=== PATIENT | female | born 1985 | race Hispanic/Latino ===

== ENCOUNTER 2017-05-01 18:53 | Emergency (ER) | payer OTHER ==
--- NOTE | 2017-05-01 19:11 | ED PDOC ---
Arrival/HPI - General Time Seen by Provider: 05/01/17 19:00 Historian: Patient - History of Present Illness Narrative History of Present Illness (Text): 05/01/17 19:04 31 y/o female, no significant pmh, nkda, last tetanus doesn't remember, c/o rt. hand thumb skin avulsion s/p sliced by the a slicer while cutting zucchini. Aching pain, no numbness or tingling, no difficulty moving the injured thumb, no numbness or tingling, no other medical or psychological complaints. Past Medical History - Provider Review Nursing Documentation Reviewed: Yes Family/Social History - Physician Review Nursing Documentation Reviewed: Yes Family/Social History: Unknown Family HX Allergies/Home Meds Allergies/Adverse Reactions: Allergies No Known Allergies Allergy (Verified 05/01/17 19:06) Home Medications: Home Meds Medication Instructions Recorded Confirmed No Known Home Med 05/01/17 05/01/17 Review of Systems - Review of Systems Constitutional: absent: Fatigue, Fevers Eyes: absent: Vision Changes ENT: absent: Hearing Changes Respiratory: absent: SOB, Cough Cardiovascular: absent: Chest Pain Gastrointestinal: absent: Abdominal Pain, Nausea, Vomiting Skin: Other (+avulsion). absent: Rash, Pruritis, Skin Lesions, Laceration, Abscess, Ulcer Neurological: absent: Headache Psychiatric: absent: Anxiety, Depression, Suicidal Ideation Physical Exam Vital Signs Temp Pulse Resp BP Pulse Ox 05/01/17 20:03 98.2 F 108 H 18 132/81 100 - Systems Exam Head: Present: Atraumatic, Normocephalic Pupils: Present: PERRL Extroacular Muscles: Present: EOMI Conjunctiva: Present: Normal Respiratory/Chest: Present: Clear to Auscultation, Good Air Exchange. No: Respiratory Distress, Accessory Muscle Use Cardiovascular: Present: Regular Rate and Rhythm, Normal S1, S2. No: Murmurs Abdomen: Present: Normal Bowel Sounds. No: Tenderness, Distention, Peritoneal Signs Upper Extremity: Present: Normal Inspection, Other (Rt. hand 1st digit thumb: visible approx. [id number] superficial skin avulsion noted with mild oozing, FROM without limitation, sensation intact, motor 5/5, +radial pulse, capillary refill< 2 seconds, neurovascular intact, there is no nail involvement. ). No: Cyanosis, Edema Lower Extremity: Present: Normal Inspection. No: Edema Neurological: Present: GCS=15, CN II-XII Intact, Speech Normal Skin: Present: Warm, Dry, Normal Color. No: Rashes Psychiatric: Present: Alert, Oriented x 3, Normal Insight, Normal Concentration Medical Decision Making ED Course and Treatment: 05/01/17 19:11 -wound irrigate with normal saline, clean with betadine, gelfoam, gauze dressing , hemostasis obtained, observe and reassess -Tdap 05/01/17 19:50 -Urine hcg is negative. -Bleeding resolved, hemostasis obtained, tdap ordered, will discharge home. -Discharge home with education on keep the dressing dry and clean, apply neosporin as needed, follow up with your own pmd and hand specialist within 2 days, return to the ER for any new or worsening signs or symptoms. 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 Disposition/Present on Arrival - Present on Arrival Any Indicators Present on Arrival: No History of DVT/PE: No History of Uncontrolled Diabetes: No Urinary Catheter: No History of Decub. Ulcer: No - Disposition Have Diagnosis and Disposition been Completed?: Yes Diagnosis: Skin avulsion Disposition: HOME/ ROUTINE Disposition Time: 19:12 Patient Plan: Discharge Patient Problems: Current Active Problems Problem Status Onset Skin avulsion Acute Condition: GOOD Additional Instructions: -Discharge home with education on keep the dressing dry and clean, apply neosporin as needed, follow up with your own pmd and hand specialist within 2 days, return to the ER for any new or worsening signs or symptoms. Referrals: Bj Gomes MD [Primary Care Provider] - Follow up with primary Forms: WORK NOTE
[2017-05-01] MEDS ORDERED: Absorbable Gelatin Sponge Size 12-7 TP ONE (19:30)
[2017-05-01] MEDS ORDERED: TDAP Vaccine 0.5 mL Syr IM ONE (19:50)
[2017-05-01 20:03] VITALS: RESP 18; TEMP 98.2; O2SAT 100
[2017-05-01 20:57] VITALS: BP 131/77; PULSE 89
== END 2017-05-01 20:50 | disposition home or self-care (01) ==
LOC: ED 18:53
DX: S61.001A Unspecified open wound of right thumb without damage to nail, initial encounter (principal); W29.0XXA Contact with powered kitchen appliance, initial encounter; Y93.G1 Activity, food preparation and clean up; Y92.89 Other specified places as the place of occurrence of the external cause; Z23 Encounter for immunization